=== PATIENT | female | born 1935 | race Caucasian/White ===

== ENCOUNTER 2016-09-26 20:43 | Inpatient (IN) | payer MEDICARE, OTHER ==
--- NOTE | ~2016-09-26 | CN ---
Consultation Report [facility] [address] [place]. [address] NAME: CRISTINA SERVIN : 37 STATUS : ADM Manju PAT#: [id number] AGE: 81 ADM/REG DATE : 09/26/16 MR#: [id number] REPORT SERV DATE: 09/26/16 DICTATED BY: ELBERT LEE DATE: 09/26/16 REPORT STATUS : Draft TRANSCRIBED BY: MODL DATE: 09/26/16 CARDIOVASCULAR CONSULTATION DATE OF CONSULTATION: 09/26/2016 HISTORY OF PRESENT ILLNESS: Ms. Servin is a 81-year-old woman with a history of known coronary artery disease, status post bypass grafting in [place]. She has a history of a bioprosthetic mitral valve placed at the same time in 2008. She has a history of persistent atrial fibrillation, but not on Coumadin due to recurrent anemia and uncertain bleeding source. She has a cardiac pacemaker. She was at a friend's in [place] and developed nausea with vomiting. She had some abdominal pain on the ride home. She has an area in her mid to lower right quadrant, which is tender to palpation. She had worsening gas and abdominal pressure type pain, which went into her chest. She took several nitroglycerins and then presented to [facility] for further evaluation. Her EKG shows ventricular paced rhythm, and her troponin enzymes have been negative overnight. She underwent an echocardiogram, carotid ultrasound study, and stress thallium study about six months ago in 03/2016, all of which were unremarkable. PAST MEDICAL HISTORY: 1. Coronary artery disease with bypass grafting in [place] in 2008. 2. Bioprosthetic mitral valve placed in 2008. 3. Persistent atrial fibrillation. 4. Hypertension. 5. Hypercholesterolemia. 6. Status post pacemaker. 7. Type 2 diabetes. 8. Carotid stenosis. ALLERGIES: INCLUDE WELLBUTRIN AND PROZAC. MEDICATIONS: Include Tylenol, Bumex 2 mg daily, Klonopin, Plavix 75 mg daily, Neurontin, insulin, iron, Metanx, Prinivil 2.5 mg daily, magnesium oxide, Toprol-XL 50 mg twice a day, Prilosec, potassium, and Pravachol. SOCIAL HISTORY: She does not drink or smoke. FAMILY HISTORY: There is no family history of early coronary artery disease. REVIEW OF SYSTEMS: A complete review of systems was obtained, which is negative in detail except as mentioned above in the HPI. PHYSICAL EXAMINATION: Consultation Report [facility] [id number] [place]. [address] NAME: CRISTINA SERVIN : 37 STATUS : ADM Manju PAT#: [id number] AGE: 81 ADM/REG DATE : 09/26/16 MR#: [id number] REPORT SERV DATE: 09/26/16 DICTATED BY: ELBERT LEE DATE: 09/26/16 REPORT STATUS : Draft TRANSCRIBED BY: MOSES DATE: 09/26/16 BLOOD PRESSURE: 125/60. PULSE: 60. RESPIRATIONS: 14 GENERAL: Comfortable in no acute distress. HEENT: Anicteric. No xanthelasma. Lips without cyanosis. NECK: No JVD. Carotids 2+ and symmetric. No carotid bruits. LUNGS: CTA bilaterally. No wheezes or rhonchi. No accessory muscle use. COR: RRR. Normally placed PMI. Normal S1 and S2. No murmurs, rubs or gallops. ABD: She was mildly tender to palpation in the mid right lower quadrant. EXT: No clubbing, cyanosis or edema 2+ and symmetric distal pulses. SKIN: Warm. Dry. No venous stasis changes. MS: No kyphosis. NEURO/PSYCH: Oriented x3. No anxiety or depression. LABORATORY STUDIES: White count of 19.6, hematocrit of 33. Creatinine of 1.67, potassium of 4.3. Troponin of less than 0.02 x2. EKG: A 12-lead EKG shows underlying atrial fibrillation with ventricular pacing at 60 beats per minute. IMPRESSION: This is a 81-year-old woman with prior history of coronary artery bypass graft and mitral valve replacement presenting, I think, more with abdominal rather than chest pain. I think her symptoms are likely non-cardiac in nature. She had recent noninvasive cardiac testing in March. Especially with her elevated white count, I recommend a GI evaluation. If this is unrevealing, we could consider cardiac catheterization, but I am not recommending that approach for now. KAYLEEN/MOSES Elbert Lee M.D. / [id number] CC: Ezra Urbano D.O.
--- NOTE | ~2016-09-26 | HP ---
History And Physical [facility] [id number] [facility] [place]. [address] NAME: CRISTINA SERVIN : 37 STATUS : ADM Manju PAT#: [id number] AGE: 81 ADM/REG DATE : 09/26/16 MR#: [id number] REPORT SERV DATE: 09/26/16 DICTATED BY: TAMMI YEH DATE: 09/26/16 REPORT STATUS : Draft TRANSCRIBED BY: MODL DATE: 09/26/16 DATE OF ADMISSION: 09/26/2016 CHIEF COMPLAINT: A 81-year-old female, presenting with chest pain and abdominal pain. HISTORY OF PRESENT ILLNESS: The patient's history was obtained through careful interview with the patient, coupled with review [facility] medical records. Over this last week, the patient had travelled to [place] with her daughter, and while traveling there developed some chest discomfort and an "upset stomach." On the day leading up to admission, she and her daughter driven 7 hours back home and she noticed that her chest pain worsened when she returned home. She describes right chest pain that sometimes radiates across the chest and goes to the back as well like a "knife stabbing," 10/10 severity that was relieved by taking a nitroglycerin. No shortness of breath. No cough. She has had nausea, but no vomiting. She also has suffered some slight right upper quadrant abdominal discomfort associated with nausea. She has had some chronic lower extremity edema ever since she had her bypass surgery in 2008, but it has not worsened from baseline and there is no leg pain or cramping. She has had some slight lightheadedness. No fevers or chills. She describes chronic arthritis especially in her hands, arms, and shoulders. Her diabetes is generally under good control. She uses an insulin pump. Rarely do blood sugars get over 200. REVIEW OF SYSTEMS: Otherwise, a 14-point review of systems was obtained and was negative. PAST MEDICAL HISTORY: 1. Coronary artery disease, status post CABG in 2008 and negative stress test in March 2016, negative echocardiogram in March 2016 except for slightly low ejection fraction of 50%. 2. Mitral valve replacement with tissue valve in 2008. 3. Right eye blindness. 4. Diabetes, on insulin pump. 5. Urinary tract infection. 6. Hypertension. 7. Elevated cholesterol. 8. Thyroid nodule. 9. "A hole in my heart.". History And Physical [facility] [address] [place]. [address] NAME: CRISTINA SERVIN : 37 STATUS : ADM Manju PAT#: [id number] AGE: 81 ADM/REG DATE : 09/26/16 MR#: [id number] REPORT SERV DATE: 09/26/16 DICTATED BY: TAMMI YEH DATE: 09/26/16 REPORT STATUS : Draft TRANSCRIBED BY: MOSES DATE: 09/26/16 10.Pacemaker. 11.No pneumonia, no asthma, no lung disease. PAST SURGICAL HISTORY: 1. Mitral valve replacement with tissue valve. 2. Pacemaker. 3. CABG in 2008. 4. Bladder surgery. 5. Bilateral breast lumpectomies for benign disease. 6. Foot surgery for infections and osteomyelitis. 7. Hysterectomy. ALLERGIES: TO CLINDAMYCIN AND PROZAC. PHYSICAL EXAMINATION: VITAL SIGNS: Temperature 97.7, pulse 97, blood pressure 127/82, respiratory rate 18, and O2 saturation 98% on room air. GENERAL: A pleasant, cooperative female, in no evidence of acute distress. HEENT: No conjunctival pallor. No scleral icterus. Nares are patent. Oropharynx is clear of obstruction. Moist mucous membranes. NECK: Trachea midline. No thyromegaly. LYMPH: No cervical lymphadenopathy. No supraclavicular lymphadenopathy. RESPIRATORY: Clear to auscultation at bases. No wheezes, rales, or rhonchi. Normal respiratory effort. CARDIOVASCULAR: Regular rate and rhythm. No murmurs, rubs, or gallops. The patient has chronic appearing lower extremity edema, slightly pitting that extends to the knees symmetrically. ABDOMEN: Soft, but the right upper quadrant has focal tenderness around the area of her liver and gallbladder, but there is no guarding, no rebound. Nondistended. No hepatosplenomegaly. DERMATOLOGICAL: Warm and dry extremities. No pallor. No cyanosis. PSYCHIATRIC: Normal affect. Good mood. Alert and oriented x3. LABORATORY DATA: White blood cell count 10.4, hemoglobin 12, hematocrit 37, and platelets 221. Sodium 135, potassium 4.3, chloride 100, bicarb 22, BUN 39, creatinine 1.9, and glucose 197. Troponin negative. INR 0.9. Liver enzymes within normal limits. STUDIES: EKG by my own evaluation shows ventricular pacing. Chest x-ray pending at the time of dictation, but was reported as negative at outlying facility. History And Physical [address] [place]. [address] NAME: CRISTINA SERVIN : 37 STATUS : ADM Manju PAT#: [id number] AGE: 81 ADM/REG DATE : 09/26/16 MR#: [id number] REPORT SERV DATE: 09/26/16 DICTATED BY: TAMMI YEH DATE: 09/26/16 REPORT STATUS : Draft TRANSCRIBED BY: MODShayla DATE: 09/26/16 ASSESSMENT AND PLAN: 1. Chest pain. Follow troponin. The patient is on Plavix. Consult washcloth folder, Dr. Garrison. Reviewed negative stress test from March 2016. We will obtain a stat V/Q scan for risk of pulmonary embolism with recent travel in car, and check venous Doppler ultrasound of lower extremities. 2. Right upper quadrant abdominal pain, tender by exam. Check an ultrasound of the gallbladder. 3. Renal insufficiency. Question chronic kidney disease ?, question acute disease ?. Hold MARS inhibitor and hold diuretic for now. 4. Diabetes. Check hemoglobin A1c. Continue insulin pump. 5. Mitral valve replacement, tissue valve. No murmur. Stable echocardiogram in March 2016. KPL/MOSES Tammi Yeh M.D. / [id number] CC: Elbert Guaman Jr, Angela Berumen M.D.
--- NOTE | ~2016-09-26 | OP ---
Record Of Operation [facility] [address] [place]. [address] NAME: CRISTINA SERVIN : 37 STATUS : ADM Manju PAT#: [id number] AGE: 81 ADM/REG DATE : 09/26/16 MR#: [id number] REPORT SERV DATE: 09/27/16 DICTATED BY: AUGUST LARA JR. DATE: 09/26/16 REPORT STATUS : Draft TRANSCRIBED BY: MODL DATE: 09/26/16 DATE OF PROCEDURE: 09/26/2016 SURGEON: August Lara M.D. GARMENT SORTER: Gino Hill. PROCEDURE: Laparoscopic cholecystectomy. PREOPERATIVE DIAGNOSIS: Acute cholecystitis. POSTOPERATIVE DIAGNOSIS: Acute cholecystitis. ANESTHESIA: General. INDICATIONS: The patient admitted with complaints of upper abdominal and chest pain. Imaging showed a thickened gallbladder wall and cholelithiasis consistent with cholecystitis, showed no evidence of any myocardial injury. She had persistently tender abdomen and laparoscopic cholecystectomy was indicated. FINDINGS: On laparoscopic examination of the abdomen, there was evidence of acute inflammation of the gallbladder with thickened gallbladder wall and some minimal perihepatic fluid. It did contain numerous small stones, removed successfully, and no other significant findings were encountered. DESCRIPTION OF PROCEDURE: With adequate general anesthesia, the patient was placed in supine position. The abdomen was prepped and draped sterilely. 0.5% Marcaine was used for local infiltration at all trocar sites. A supraumbilical incision was made. The dissection was carried down sharply through the subcutaneous tissues, the fascia, and peritoneum were opened, and the peritoneal cavity was entered. A balloon-tipped trocar was introduced and the abdomen was insufflated with CO2. The laparoscope was introduced with the above-noted findings. Under direct vision, a 10/11 trocar was placed in the epigastric region and then two 5 mm trocars in the subcostal. Aspirate needle was placed and bile was aspirated from the gallbladder lumen. Cultures were obtained. The gallbladder was then retracted in a cephalad manner. The cystic duct and artery were identified, there was additional arterial branch as well, these were all doubly clipped and divided. The gallbladder was then removed from its bed with sharp and blunt dissection. It was placed in an Endopouch and extracted through the epigastric site and submitted to Pathology. Bleeding within the gallbladder bed was controlled with electrocautery, Surgicel, and Surgiflo. A 19-Robert drain was left in the subhepatic space and brought through the most lateral trocar site where it was secured with a nylon suture. After thorough irrigation, removal of all blood and stones, there was no evidence of any bleeding or bile leak, and all trocars were removed under direct vision. The umbilical and epigastric sites were closed in the fascial layer with [id number] PDS. All wounds were then closed with dermal Monocryl. Sterile dressings were applied. The patient left the operating room in satisfactory condition. Record Of Operation [facility] [address] [place]. [address] NAME: CRISTINA SERVIN : 37 STATUS : ADM Manju PAT#: [id number] AGE: 81 ADM/REG DATE : 09/26/16 MR#: [id number] REPORT SERV DATE: 09/27/16 DICTATED BY: AUGUST LARA JR. DATE: 09/26/16 REPORT STATUS : Draft TRANSCRIBED BY: MOSES DATE: 09/26/16 ESTIMATED BLOOD LOSS: 50 mL. HUMBERTO/MOSES August Lara Jr., M.D. / [id number] CC: August Lara Jr., M.D.
[2016-09-26 04:52] LABS: BASOPHILS 0.1 %; BASOPHILS ABSOLUTE 0.01 10/3/uL (0.0-0.16); EOSINOPHILS 0 %; HEMATOCRIT 33.2 % (36.0-48.0); IMMATURE GRANULOCYTES 0.5 %; LYMPHOCYTES ABSOLUTE 0.78 10/3/uL (0.67-4.30); MEAN CORPUS HGB CONC 33.1 g/dL (32.0-36.0); MEAN CORPUSCULAR HEMOGLOB 30.7 pg (26.0-34.0); MEAN CORPUSCULAR VOLUME 92.7 fL (80-100); MEAN PLATELET VOLUME 9.5 fL (9.2-13.0); MONOCYTES 8.8 %; MONOCYTES ABSOLUTE 1.72 10/3/uL (0.21-1.20); NEUTROPHILS 86.6 %; NEUTROPHILS ABSOLUTE 16.97 10/3/uL (2.02-8.40); PLATELET COUNT 200 10/3/uL (150-400); RED CELL COUNT 3.58 10/6/uL (4.0-5.6); WHITE BLOOD CELLS 19.6 10/3/uL (4.5-10.5)
[2016-09-26 04:53] LABS: MANUAL DIFF NO %
[2016-09-26 04:58] LABS: INTERNATIONAL NORMAL RATI 1.2 UNITS (-); PARTIAL THROMBO TIME 32.3 SEC (22.5-37.2); PROTIME (NOT ORD) 14.9 SEC (12.0-14.5)
[2016-09-26 05:14] LABS: A/G RATIO 0.9 (0.7-1.9); ALBUMIN 3.6 G/DL (3.5-5.0); ALKALINE PHOSPHATASE 65 U/L (45-117); BUN (BLOOD UREA NITROGEN) 40 MG/DL (6-23); CHLORIDE, SERUM 101 MMOL/L (96-112); CO2 (CARBON DIOXIDE) 27 MMOL/L (24-34); CREATININE 1.67 MG/DL (0.55-1.02); GFR AFRICAN AMERICAN 33 ML/MIN (>=60); GFR NON AFRICAN AMERICAN 29 ML/MIN (>=60); GLUCOSE, SERUM 165 MG/DL (60-99); SGPT(ALT) 28 U/L (5-65); SODIUM, SERUM 136 MMOL/L (135-148); TOTAL BILIRUBIN 1.2 MG/DL (0-1.2); TOTAL PROTEIN 7.6 G/DL (6.0-8.5); TROPONIN I <0.02 NG/ML (<0.05); ULTRASENSITIVE TSH 0.478 MCIU/ML (0.358-3.740)
[2016-09-26 05:21] LABS: POTASSIUM, SERUM 4.3 MMOL/L (3.5-5.3); SGOT(AST) 22 U/L (5-40)
[2016-09-26 05:44] LABS: B NATRIURETIC PEPTIDE (BNP) 915.6 PG/ML (< 100.0)
[2016-09-26 10:35] LABS: GLYCOHEMOGLOBIN (HbA1c) 6.8 % (4.7-6.1)
[~2016-09-26 20:43] MED LIST: ACET500CAP PO; BUM2 PO; GERIATRIC HP PO; KLONO5 PO; LOP50 PO; MAG OXIDE250 MG PO; METANX PO; NEUR100 PO; NOVREGPUMP SC; PLAVIX PO; PRAVACHOL40 MG PO; PRILO PO; PRIN2.5 PO; TOPXL50 PO; UROCIT-K10 MEQ PO
[2016-09-26 21:32] LABS: MEAN CORPUS HGB CONC 32.3 g/dL (32.0-36.0); MEAN CORPUSCULAR HEMOGLOB 30.1 pg (26.0-34.0); MEAN CORPUSCULAR VOLUME 93.4 fL (80-100); MEAN PLATELET VOLUME 9.4 fL (9.2-13.0); PLATELET COUNT 190 10/3/uL (150-400); RED CELL COUNT 3.32 10/6/uL (4.0-5.6); WHITE BLOOD CELLS 19.5 10/3/uL (4.5-10.5)
[2016-09-26 21:35] LABS: MANUAL DIFF YES %
[2016-09-26 21:46] LABS: CALCIUM, SERUM 8.6 MG/DL (8.5-10.4); CHLORIDE, SERUM 103 MMOL/L (96-112); CO2 (CARBON DIOXIDE) 28 MMOL/L (24-34); CREATININE 1.84 MG/DL (0.55-1.02); GFR AFRICAN AMERICAN 30 ML/MIN (>=60); GFR NON AFRICAN AMERICAN 26 ML/MIN (>=60); SODIUM, SERUM 136 MMOL/L (135-148)
[2016-09-26 21:48] LABS: BUN (BLOOD UREA NITROGEN) 45 MG/DL (6-23); GLUCOSE, SERUM 129 MG/DL (60-99)
[2016-09-26 21:50] LABS: BAND NEUTROPHILS 17 %; EOSINOPHILS 2 %; EOSINOPHILS ABSOLUTE (CALC) 0.39 10/3/uL (0.0-0.53); LYMPHOCYTES 7 %; LYMPHOCYTES ABSOLUTE (CALC) 1.37 10/3/uL (0.67-4.30); MONOCYTES 8 %; MONOCYTES ABSOLUTE (CALC) 1.56 10/3/uL (0.21-1.20); NEUTROPHILS ABSOLUTE (CALC) 16.19 10/3/uL (2.02-8.40); PLATELET ESTIMATE ADQ (ADEQUATE); RBC MORPHOLOGY NORM (NORMAL); SEGMENTED NEUTROPHIL (0) 66 %; TOTAL NUCLEATED CELLS 100
[2016-09-27 04:33] LABS: BASOPHILS 0.1 %; BASOPHILS ABSOLUTE 0.01 10/3/uL (0.0-0.16); EOSINOPHILS 0.1 %; EOSINOPHILS ABSOLUTE 0.01 10/3/uL (0.0-0.53); HEMATOCRIT 29.5 % (36.0-48.0); HEMOGLOBIN 9.6 g/dL (12.0-16.0); IMMATURE GRANULOCYTES 0.3 %; IMMATURE GRANULOCYTES ABSOLUTE 0.04 10/3/uL (0.0-0.11); LYMPHOCYTES 5.5 %; LYMPHOCYTES ABSOLUTE 0.82 10/3/uL (0.67-4.30); MEAN CORPUS HGB CONC 32.5 g/dL (32.0-36.0); MEAN CORPUSCULAR HEMOGLOB 30.8 pg (26.0-34.0); MEAN CORPUSCULAR VOLUME 94.6 fL (80-100); MEAN PLATELET VOLUME 9.2 fL (9.2-13.0); MONOCYTES 5.4 %; NEUTROPHILS 88.6 %; NEUTROPHILS ABSOLUTE 13.19 10/3/uL (2.02-8.40); PLATELET COUNT 147 10/3/uL (150-400); RBC DISTRIBUTION WIDTH 14.3 % (12.0-16.0); RED CELL COUNT 3.12 10/6/uL (4.0-5.6); WHITE BLOOD CELLS 14.9 10/3/uL (4.5-10.5)
[2016-09-27 04:34] LABS: MANUAL DIFF NO %
[2016-09-27 04:51] LABS: A/G RATIO 0.7 (0.7-1.9); ALBUMIN 2.9 G/DL (3.5-5.0); ALKALINE PHOSPHATASE 56 U/L (45-117); BUN (BLOOD UREA NITROGEN) 48 MG/DL (6-23); CALCIUM, SERUM 8.4 MG/DL (8.5-10.4); CHLORIDE, SERUM 104 MMOL/L (96-112); CREATININE 1.75 MG/DL (0.55-1.02); GFR AFRICAN AMERICAN 32 ML/MIN (>=60); GFR NON AFRICAN AMERICAN 27 ML/MIN (>=60); GLOBULIN 3.9 G/DL (2.5-4.1); GLUCOSE, SERUM 149 MG/DL (60-99); SGPT(ALT) 47 U/L (5-65); SODIUM, SERUM 133 MMOL/L (135-148); TOTAL BILIRUBIN 0.8 MG/DL (0-1.2); TOTAL PROTEIN 6.8 G/DL (6.0-8.5)
[2016-09-27 04:52] LABS: CO2 (CARBON DIOXIDE) 22 MMOL/L (24-34); POTASSIUM, SERUM 4.9 MMOL/L (3.5-5.3); SGOT(AST) 36 U/L (5-40)
[2016-09-28 05:51] LABS: BASOPHILS 0.2 %; BASOPHILS ABSOLUTE 0.02 10/3/uL (0.0-0.16); EOSINOPHILS 1.6 %; EOSINOPHILS ABSOLUTE 0.17 10/3/uL (0.0-0.53); HEMATOCRIT 27.1 % (36.0-48.0); HEMOGLOBIN 8.8 g/dL (12.0-16.0); IMMATURE GRANULOCYTES 0.3 %; IMMATURE GRANULOCYTES ABSOLUTE 0.03 10/3/uL (0.0-0.11); LYMPHOCYTES 10.7 %; LYMPHOCYTES ABSOLUTE 1.13 10/3/uL (0.67-4.30); MEAN CORPUS HGB CONC 32.5 g/dL (32.0-36.0); MEAN CORPUSCULAR HEMOGLOB 30.6 pg (26.0-34.0); MEAN CORPUSCULAR VOLUME 94.1 fL (80-100); MEAN PLATELET VOLUME 9.5 fL (9.2-13.0); MONOCYTES ABSOLUTE 1.05 10/3/uL (0.21-1.20); NEUTROPHILS 77.2 %; NEUTROPHILS ABSOLUTE 8.15 10/3/uL (2.02-8.40); PLATELET COUNT 183 10/3/uL (150-400); RED CELL COUNT 2.88 10/6/uL (4.0-5.6); WHITE BLOOD CELLS 10.6 10/3/uL (4.5-10.5)
[2016-09-28 05:53] LABS: MANUAL DIFF NO %
[2016-09-28 06:00] LABS: BUN (BLOOD UREA NITROGEN) 47 MG/DL (6-23); CALCIUM, SERUM 8.1 MG/DL (8.5-10.4); CHLORIDE, SERUM 103 MMOL/L (96-112); CO2 (CARBON DIOXIDE) 25 MMOL/L (24-34); CREATININE 1.57 MG/DL (0.55-1.02); GFR AFRICAN AMERICAN 36 ML/MIN (>=60); GFR NON AFRICAN AMERICAN 31 ML/MIN (>=60); POTASSIUM, SERUM 4.1 MMOL/L (3.5-5.3); SODIUM, SERUM 133 MMOL/L (135-148)
[2016-09-28 06:16] LABS: GLUCOSE, SERUM 65 MG/DL (60-99)
[2016-09-28] MEDS ORDERED: NORCO1 TA1 PO (11:50)
== END 2016-09-28 14:18 | disposition home or self-care (01) | DRG 418 ==
LOC: 4SO 20:43
PROVIDERS: Internal Medicine; Nurse Practitioner; Specialist
PROC: 0FT44ZZ Resection of Gallbladder, Percutaneous Endoscopic Approach (ICD-10-PCS; principal; 2016-09-26 17:30)
DX: K80.00 Calculus of gallbladder with acute cholecystitis without obstruction (principal); I48.1 Persistent atrial fibrillation; N17.9 Acute kidney failure, unspecified; E11.22 Type 2 diabetes mellitus with diabetic chronic kidney disease; I65.29 Occlusion and stenosis of unspecified carotid artery; I25.10 Atherosclerotic heart disease of native coronary artery without angina pectoris; Z95.1 Presence of aortocoronary bypass graft; M19.90 Unspecified osteoarthritis, unspecified site; Z79.4 Long term (current) use of insulin; Z96.41 Presence of insulin pump (external) (internal); Z95.4 Presence of other heart-valve replacement; E78.00 Pure hypercholesterolemia, unspecified; Z95.0 Presence of cardiac pacemaker; Z88.1 Allergy status to other antibiotic agents; Z88.8 Allergy status to other drugs, medicaments and biological substances; Z79.02 Long term (current) use of antithrombotics/antiplatelets; I12.9 Hypertensive chronic kidney disease with stage 1 through stage 4 chronic kidney disease, or unspecified chronic kidney disease; N18.9 Chronic kidney disease, unspecified
CPT/HCPCS: 71010; 76705; 78582; 80048; 80053; 82962; 83036; 83735; 83880; 84443; 84484; 85025; 85610; 85730; 87015; 87070; 87075; 87102; 87116; 87205; 88304; 88312; 93005; 93970; A9270-GY; A9540; A9567; J0690; J1170; J2405; J2710; J3010; Q9967